=== PATIENT | male | born 2000 | race Caucasian/White ===

== ENCOUNTER 2020-07-15 05:04 | Day surgery (SDC) | payer OTHER ==
[2020-07-13 11:48] VITALS: BMI 23.4
[2020-07-15 11:40] VITALS: TEMP 97.9
[2020-07-15 12:04] VITALS: PULSE 58
[2020-07-15 12:21] VITALS: BP 110/64
--- NOTE | 2020-07-16 18:24 | PATH ---
Surgical Pathology Report Patient Name: YESI RAPP [facility]. Rec. #: [id number] /Age/Gender: 2000 (Age: 19) / M Account: [id number] Location: U-ENDOSCOPY Taken: 07/15/2020 Received: 07/15/2020 Reported: 07/16/2020 Physicians: Baldev Leon D.O. Specimen(s) Received ANTRUM & BODY Clinical History Abdominal pain Postoperative diagnosis: Gastritis Final Diagnosis STOMACH, ANTRUM AND BODY, BIOPSY: GASTRIC ANTRAL AND BODY MUCOSA WITH MILD CHRONIC GASTRITIS. IMMUNOHISTOCHEMICAL STAIN FOR H. PYLORI IS NEGATIVE. Positive and negative controls (internal if applicable) show appropriate results. Electronically Signed Jami Moody M.D. Gross Description Received in formalin, labeled "biopsy antrum and body" are 5 anglin, irregular portions of soft tissue averaging 0.2 cm. in greatest dimension. The specimens are submitted in toto in one cassette. /07/15/2020 [facility]/07/15/2020
== END 2020-07-15 12:21 | disposition home or self-care (01) ==
LOC: JASU-ENDO 05:04
PROVIDERS: ATTEND Internal Medicine Gastroenterology
PROC: 0DB68ZX Excision of Stomach, Via Natural or Artificial Opening Endoscopic, Diagnostic (ICD-10-PCS; principal; 2020-07-15 11:00)
DX: K29.50 Unspecified chronic gastritis without bleeding (principal)
CPT/HCPCS: 88305-TC; 88342-TC